=== PATIENT | female | born 1965 | race Caucasian/White ===

== ENCOUNTER 2024-09-09 10:10 | Emergency (ER) | payer BC ==
[~2024-09-09] VITALS: Ht 152.4 cm; Wt 65.8 kg
[2024-09-09] MEDS ORDERED: ALBUTEROL SULFATE 2.5 MG/3 ML NEBU ONE (10:51)
[2024-09-09] MEDS ORDERED: IPRATROPIUM BROMIDE 0.5 MG/2.5 ML NEBU ONE (10:51)
[2024-09-09] MEDS ORDERED: predniSONE 50 MG TABLET ONE (10:55)
[2024-09-09] MEDS ORDERED: predniSONE 10 MG TABLET ONE (10:55)
[2024-09-09] MEDS ORDERED: AMOX-430 PO (10:56)
[2024-09-09] MEDS ORDERED: PRED20TA PO (10:56)
[2024-09-09] MEDS ORDERED: ALBU8.5H8 INH (10:56)
[2024-09-09] MEDS ORDERED: BUDE10.2 INH (10:56)
[2024-09-09] MEDS: predniSONE 10 MG TABLET PO ONE (10:57)
[2024-09-09 11:02] VITALS: O2SAT 98
[2024-09-09] MEDS: IPRATROPIUM BROMIDE 0.5 MG/2.5 ML NEBU NEB ONE (11:02)
[2024-09-09] MEDS: ALBUTEROL SULFATE 2.5 MG/3 ML NEBU NEB ONE (11:02)
[2024-09-09 11:17] VITALS: O2SAT 99
[2024-09-09 11:30] VITALS: BP 113/70; O2SAT 99
== END 2024-09-09 11:31 | disposition home or self-care (01) ==
LOC: ER 10:10
DX: J45.901 Unspecified asthma with (acute) exacerbation (principal); I10 Essential (primary) hypertension
CPT/HCPCS: 99283; 71045; 94640; J7512 ×2; 94760; A4606; A4663; J3590